=== PATIENT | male | born 1995 | race Caucasian/White ===

== ENCOUNTER 2019-11-24 23:01 | Emergency (ER) | payer MEDICAID ==
[2019-11-24] MEDS ORDERED: FAMOTIDINE INJ/PF 20 MG/2 ML SDV IV ONE (23:19)
[2019-11-24] MEDS ORDERED: METHYLPREDNISOLONE INJ 125 MG/2 ML SDV IV ONE (23:19)
--- NOTE | 2019-11-24 23:21 | ER Document Report ---
ED Allergic Reaction - General Stated Complaint: ALLERGIC REACTION Time Seen by Provider: 11/24/19 23:13 Notes: Patient is a 24-year-old male that comes emergency department for chief complaint of allergic reaction. He states that just prior to arrival he started swelling in his upper eyelids, lips, and at the back of his throat. He states he also started itching all over. He states that he took 50 mg of Benadryl, took his EpiPen, and called EMS. EMS gave him reportedly 50 more milligrams of IV Benadryl, and only 50 mg of Zantac. Patient states that symptoms started rapidly improving after all of the medications, his eyelids are less swollen, his lips are barely swollen at all, his throat feels improved, he feels overall improved. He denies difficulty breathing or swallowing at this time. Patient states that he has had this happen several times in the past, it happens to his mother, he had allergy testing but was only told he was allergic to shellfish. He denies eating shellfish, this happened before he ate tonight. He denies any daily medications or medical history otherwise. He lives with his . - Related Data Allergies/Adverse Reactions: Penicillins Allergy (Verified 11/24/19 23:31) shellfish derived Allergy (Verified 11/24/19 23:31) Past Medical History - General Information source: Patient - Social History Smoking Status: Never Smoker Frequency of alcohol use: None Drug Abuse: None Lives with: Family Family History: Reviewed & Not Pertinent Surgical Hx: Negative - Immunizations Immunizations up to date: Yes Hx Diphtheria, Pertussis, Tetanus Vaccination: Yes Review of Systems - Review of Systems Constitutional: No symptoms reported EENT: See HPI Cardiovascular: No symptoms reported Respiratory: No symptoms reported Gastrointestinal: No symptoms reported Genitourinary: No symptoms reported Male Genitourinary: No symptoms reported Musculoskeletal: No symptoms reported Skin: See HPI Hematologic/Lymphatic: No symptoms reported Neurological/Psychological: No symptoms reported Physical Exam - Vital signs Vitals: Temp Resp Pulse Ox 98.3 F 12 96 11/24/19 23:12 11/24/19 23:12 11/24/19 23:12 - Notes Notes: GENERAL: Alert, interacts well. HEAD: Normocephalic, atraumatic. EYES: Pupils equal, round, and reactive to light. Extraocular movements intact. There is some edema of both upper eyelids, not the lower eyelids. Sclera is normal. ENT: Oral mucosa moist, tongue midline. There is very faint uvular edema noted. Tongue is normal. Airway patent. Patient handling secretions without difficulty. Nares patent, no nasal septal hematoma, TM's intact. NECK: Full range of motion. Supple. Trachea midline. LUNGS: Clear to auscultation bilaterally, no wheezes, rales, or rhonchi. No respiratory distress. HEART: Regular rate and rhythm. No murmur ABDOMEN: Soft, non-tender. Non-distended. EXTREMITIES: Moves all 4 extremities spontaneously. No edema, normal radial and dorsalis pedis pulses bilaterally. No cyanosis. BACK: no cervical, thoracic, lumbar midline tenderness. No saddle anesthesia, normal distal neurovascular exam. Moves all extremities in full range of motion. NEUROLOGICAL: Alert and oriented x3. Normal speech. Cranial nerves II through XII grossly intact. PSYCH: Normal affect, normal mood. SKIN: Flushed but no overt urticaria noted. Course - Re-evaluation Re-evalutation: On initial exam patient has puffy eyelids, faint uvular edema, flushed skin but no overt hives. Patient states that he is much better than previously. Patient will be given Solu-Medrol and Pepcid in addition to his medications and he will be closely monitored. On reevaluation patient improved, eyelids are improved, lips are still not swollen, uvula edema has resolved. Reevaluate again, patient has no significant change from prior. Patient has been monitored for over 2 hours. Patient has only had symptom improvement and he is requesting to leave. Oropharynx unremarkable, he only has puffy eyelids at this point. Patient has had this multiple times in the past with similar results and never had to be admitted and has never had additional complications. Provided with medications including EpiPen, discussed follow-up with primary care including immunology like his mother needed for her similar symptoms, discussed return precautions in detail. Patient and family state understanding and agreement. Stable at time of discharge. - Vital Signs Vital signs: Temp Pulse Resp BP Pulse Ox 98.2 F 12 107/60 97 11/25/19 01:38 11/25/19 01:38 11/25/19 01:38 11/25/19 01:38 Discharge - Discharge Clinical Impression: Allergic reaction Qualifiers: Encounter type: initial encounter Qualified Code(s): T78.40XA - Allergy, unspecified, initial encounter Condition: Stable Disposition: HOME, SELF-CARE Additional Instructions: Your evaluation is consistent with an allergic reaction. Take the prednisone as prescribed to completion, take the daily antihistamine at least for a week, follow close with primary care. As we discussed discuss with your primary care a follow-up with immunology because of your interesting history and family history. If you worsen in any way (swelling of the face, tongue, throat, difficulty breathing, etc.) take the EpiPen and return immediately to the emergency department. Prescriptions: Cetirizine HCl [24Hour Allergy] 10 mg PO DAILY #30 tablet Prednisone [Deltasone 10 mg Tablet] 10 mg PO ASDIR PRN #21 tablet PRN Reason: Epinephrine [Epipen 2-Jere] 0.3 mg IM ASDIR PRN #1 packet PRN Reason: Forms: Return to Work
[2019-11-25 01:44] VITALS: BP 107/60
== END 2019-11-25 01:45 | disposition home or self-care (01) ==
LOC: ER 23:01
DX: T78.40XA Allergy, unspecified, initial encounter (principal); R60.9 Edema, unspecified; L29.9 Pruritus, unspecified; X58.XXXA Exposure to other specified factors, initial encounter; R23.2 Flushing; Z91.013 Allergy to seafood; Z88.0 Allergy status to penicillin
CPT/HCPCS: 99283; 96374; 96375; J2930; S0028